=== PATIENT | male | born 1965 | race Caucasian/White ===

== ENCOUNTER 2019-05-17 10:52 | Emergency (ER) | payer SELFPAY ==
[2019-05-17] MEDS ORDERED: Morphine 2 MG/ML Syringe ONE (11:02)
[2019-05-17] MEDS ORDERED: Aspirin 81 MG Tab.Chew PO ONE (11:07)
[2019-05-17] MEDS ORDERED: Nitroglycerin 0.4 MG Tab.SL SL ONE (11:07)
[2019-05-17] MEDS ORDERED: Morphine 2 MG/ML Syringe IVPUSH ONE (11:20)
[2019-05-17 11:29] LABS: CHLORIDE,CL 106 mEq/L (98-106); SODIUM,NA 141 mEq/L (136-145)
--- NOTE | 2019-05-17 11:37 | EDM.PDOC ---
ED HPI GENERAL MEDICAL PROBLEM - General Chief Complaint: Chest Pain Stated Complaint: CP Time Seen by Provider: 05/17/19 11:00 Source of Information: Reports: Patient History Limitations: Reports: No Limitations - History of Present Illness INITIAL COMMENTS - FREE TEXT/NARRATIVE: Patient presents with sharp left anterior chest pain. States has had a nagging discomfort in this area for the last 2 days but became much more intense about 30 minutes ago while working outside. States the pain "put me to my knees". No cardiac history. Describes as sharp, rates at a 9/10. Feels short of breath , nauseated. Admits pain is worse with taking a deep breath. no history of hyperlipidemia, hypertension. Is a smoker. Daily alcohol intake. Onset: Gradual Duration: Day(s):, Getting Worse Location: Reports: Chest Quality: Reports: Sharp Severity: Severe Improves with: Reports: Rest Worsens with: Reports: Other (coughing) Associated Symptoms: Reports: Chest Pain, Cough, Diaphoresis, Nausea/Vomiting, Shortness of Breath. Denies: Fever/Chills, Headaches, Loss of Appetite l chest Pain Score (Numeric/FACES): 9 - Related Data Allergies Allergy/AdvReac Type Severity Reaction Status Date / Time No Known Allergies Allergy Verified 05/17/19 11:04 Home Meds: Home Meds . [No Known Home Meds] 05/17/19 [History] Past Medical History - Past Health History Medical/Surgical History: Denies Medical/Surgical History Social & Family History - Family History Family Medical History: Noncontributory - Tobacco Use Smoking Status *Q: Current Every Day Smoker Years of Tobacco use: 20 Packs/Tins Daily: 1 - Caffeine Use Caffeine Use: Reports: Coffee - Recreational Drug Use Recreational Drug Use: No ED ROS GENERAL - Review of Systems Review Of Systems: See Below Constitutional: Denies: Fever, Chills, Malaise, Weakness HEENT: Reports: No Symptoms Respiratory: Reports: Shortness of Breath, Cough Cardiovascular: Reports: Chest Pain. Denies: Edema, Lightheadedness Endocrine: Reports: Fatigue GI/Abdominal: Reports: Nausea. Denies: Abdominal Pain, Constipation, Diarrhea, Vomiting : Reports: No Symptoms Musculoskeletal: Reports: No Symptoms Skin: Reports: No Symptoms Neurological: Reports: No Symptoms ED EXAM, GENERAL - Physical Exam Exam: See Below Exam Limited By: No Limitations General Appearance: Alert, WD/WN, Moderate Distress Ears: Normal External Exam, Normal TMs Nose: Normal Inspection, Normal Mucosa, No Blood Throat/Mouth: Normal Inspection, Normal Oropharynx Head: Normocephalic Neck: Normal Inspection, Supple, Non-Tender Respiratory/Chest: No Respiratory Distress, Lungs Clear, Normal Breath Sounds Cardiovascular: Regular Rate, Rhythm GI/Abdominal: Normal Bowel Sounds, Soft, Non-Tender Extremities: Normal Inspection, No Pedal Edema Neurological: Alert, Oriented Skin Exam: Warm, Dry Course - Vital Signs Last Recorded V/S: Last Vital Signs Temp 97.8 F 05/17/19 11:05 Pulse 69 05/17/19 14:08 Resp 14 05/17/19 14:08 BP 118/71 05/17/19 14:08 Pulse Ox 99 05/17/19 14:08 - Orders/Labs/Meds Orders: Active Orders 24 hr Category Date Time Status Chest 1V Frontal [CR] Stat Exams 05/17/19 11:05 Taken Labs: Laboratory Tests 05/17/19 05/17/19 05/17/19 Range/Units 10:53 10:53 10:53 WBC 7.2 (5.0-10.0) 10^3/uL RBC 4.53 (4.50-6.00) 10^6/uL Hgb 15.2 (14.0-18.0) g/dL Hct 44.2 (40.0-54.0) % MCV 97.6 H (82.0-94.0) fL MCH 33.6 H (27.0-32.0) pg MCHC 34.4 (33.0-38.0) g/dL RDW Coeff of Renan 13.2 (11.0-15.0) % Plt Count 279 (150-400) 10^3/uL Neut % (Auto) 38.5 (35-85) % Lymph % (Auto) 44.9 (10-55) % [place] % (Auto) 13.4 (0-16) % Eos % (Auto) 2.1 (0-5) % Baso % (Auto) 1.1 (0-3) % Neut # (Auto) 2.75 (1.80-7.00) 10^3/uL Lymph # (Auto) 3.21 (1.00-4.80) 10^3/uL [place] # (Auto) 0.96 H (0.00-0.80) 10^3/uL Eos # (Auto) 0.15 (0.00-0.45) 10^3/uL Baso # (Auto) 0.08 10^3/uL PT 10.0 (9.7-12.3) SEC INR 0.97 (0.92-1.18) APTT 26.6 (23.2-32.3) SEC D-Dimer, Quantitative 0.39 (0.00-0.50) Sodium 141 (136-145) mEq/L Potassium 4.0 (3.5-5.0) mEq/L Chloride 106 (98-106) mEq/L Carbon Dioxide 24 (21-32) mmol/L BUN 18 (7-18) mg/dL Creatinine 0.9 (0.7-1.3) mg/dL Est Cr Clr Drug Dosing 84.67 mL/min Estimated GFR (MDRD) > 60 (>=60) mL/min Glucose 113 H (75-99) mg/dL Calcium 8.5 (8.4-10.1) mg/dL Magnesium 1.8 (1.8-2.4) mg/dL Total Bilirubin 0.4 (0.0-1.0) mg/dL AST 23 (15-37) U/L ALT 24 (12-78) U/L Alkaline Phosphatase 70 (46-116) U/L Lactate Dehydrogenase (100-190) U/L Creatine Kinase (35-232) U/L Troponin I < 0.017 (0.00-0.06) ng/mL Total Protein 6.9 (6.4-8.2) g/dL Albumin 3.4 (3.4-5.0) g/dL 05/17/19 Range/Units 15:08 WBC (5.0-10.0) 10^3/uL RBC (4.50-6.00) 10^6/uL Hgb (14.0-18.0) g/dL Hct (40.0-54.0) % MCV (82.0-94.0) fL MCH (27.0-32.0) pg MCHC (33.0-38.0) g/dL RDW Coeff of Renan (11.0-15.0) % Plt Count (150-400) 10^3/uL Neut % (Auto) (35-85) % Lymph % (Auto) (10-55) % [place] % (Auto) (0-16) % Eos % (Auto) (0-5) % Baso % (Auto) (0-3) % Neut # (Auto) (1.80-7.00) 10^3/uL Lymph # (Auto) (1.00-4.80) 10^3/uL [place] # (Auto) (0.00-0.80) 10^3/uL Eos # (Auto) (0.00-0.45) 10^3/uL Baso # (Auto) 10^3/uL PT (9.7-12.3) SEC INR (0.92-1.18) APTT (23.2-32.3) SEC D-Dimer, Quantitative (0.00-0.50) Sodium (136-145) mEq/L Potassium (3.5-5.0) mEq/L Chloride (98-106) mEq/L Carbon Dioxide (21-32) mmol/L BUN (7-18) mg/dL Creatinine (0.7-1.3) mg/dL Est Cr Clr Drug Dosing mL/min Estimated GFR (MDRD) (>=60) mL/min Glucose (75-99) mg/dL Calcium (8.4-10.1) mg/dL Magnesium (1.8-2.4) mg/dL Total Bilirubin (0.0-1.0) mg/dL AST (15-37) U/L ALT (12-78) U/L Alkaline Phosphatase (46-116) U/L Lactate Dehydrogenase 157 (100-190) U/L Creatine Kinase 99 (35-232) U/L Troponin I < 0.017 (0.00-0.06) ng/mL Total Protein (6.4-8.2) g/dL Albumin (3.4-5.0) g/dL Meds: Medications Discontinued Medications Generic Name Dose Route Start Last Admin Trade Name Freq PRN Reason Stop Dose Admin Aspirin 324 mg 05/17/19 11:07 05/17/19 11:13 Aspirin PO 05/17/19 11:08 324 mg ONETIME ONE Administration Morphine Sulfate Confirm 05/17/19 11:02 05/17/19 11:21 Morphine Administered 05/17/19 11:03 Not Given Dose 2 mg .ROUTE .STK-MED ONE Morphine Sulfate 1 mg 05/17/19 11:20 05/17/19 11:21 Morphine IVPUSH 05/17/19 11:21 1 mg ONETIME ONE Administration Nitroglycerin 0.4 mg 05/17/19 11:07 05/17/19 11:13 Nitrostat SL 05/17/19 11:08 0.4 mg ONETIME ONE Administration - Re-Assessments/Exams Free Text/Narrative Re-Assessment/Exam: 05/17/19 1130 labs are all normal. EKG shows LBBB. Was given one nitro with pain improvement from 9 to 5. Morphine given and did improve pain. Will repeat enzymes in 4 hours and observe. 05/17/19 12:58 Patient sleeping. Has not voiced any further complaints of pain 1600 Repeat labs are normal. patient does still have discomfort but mostly only notes with deep breaths and coughing Departure - Departure Time of Disposition: 16:06 Disposition: Home, Self-Care 01 Condition: Fair Clinical Impression: Atypical chest pain Referrals: PCP,None [Primary Care Provider] - Forms: ED Department Discharge Additional Instructions: 1. Rest 2. Push fluids 3. Prednisone 20 mg- 2 tabs daily for 5 days 4. Follow up if any ongoing concerns. - My Orders Last 24 Hours: My Active Orders 05/17/19 11:05 Chest 1V Frontal [CR] Stat - Assessment/Plan Last 24 Hours: My Active Orders 05/17/19 11:05 Chest 1V Frontal [CR] Stat
== END 2019-05-17 16:17 | disposition home or self-care (01) ==
LOC: CC.ED 10:52
DX: R07.89 Other chest pain (principal); F17.210 Nicotine dependence, cigarettes, uncomplicated
CPT/HCPCS: 36415; 71045; 80053; 82550; 83615; 83735; 84484; 85025; 85379; 85610; 85730; 93005; 96374; 99285-25; A9270-GY; J2270